=== PATIENT | male | born 1985 | race Caucasian/White ===

== ENCOUNTER 2018-06-17 14:19 | Emergency (ER) | payer OTHER ==
[~2018-06-17] VITALS: Ht 175.3 cm; Wt 83.9 kg
== END 2018-06-17 17:47 | disposition home or self-care (01) ==
LOC: ED 14:19
PROC: 0XQJXZZ Repair Right Hand, External Approach (ICD-10-PCS; principal; 2018-06-17)
PROC: 0XQWXZZ Repair Left Little Finger, External Approach (ICD-10-PCS; 2018-06-17)
DX: S61.227A Laceration with foreign body of left little finger without damage to nail, initial encounter (principal); S61.411A Laceration without foreign body of right hand, initial encounter; F17.200 Nicotine dependence, unspecified, uncomplicated; Z88.0 Allergy status to penicillin; Z88.2 Allergy status to sulfonamides; Z88.1 Allergy status to other antibiotic agents; W25.XXXA Contact with sharp glass, initial encounter; Y93.G1 Activity, food preparation and clean up
CPT/HCPCS: 12002; 73140; 99283-25